=== PATIENT | male | born 1990 | race Caucasian/White ===

== ENCOUNTER 2016-12-31 06:49 | Emergency (ER) | payer SELFPAY ==
[~2016-12-31] VITALS: Ht 182.9 cm; Wt 65.0 kg
[2016-12-31 06:51] VITALS: BP 149/75; PULSE 68; RESP 16; TEMP 98.4; O2SAT 97
[2016-12-31] MEDS ORDERED: SODIUM CHLOR 0.9% 1000 ML INJ 1,000 ML IV SCH (07:42)
[2016-12-31 07:44] VITALS: O2SAT 98
[2016-12-31] MEDS ORDERED: SODIUM CHLOR 0.9% 1000 ML INJ 1,000 ML IV ONE (07:45)
[2016-12-31] MEDS ORDERED: SODIUM CHLORIDE 0.9% FLUSH 10 ML FLUSH IV FLUSH PRN (07:45)
[2016-12-31] MEDS ORDERED: ONDANSETRON HCL 4 MG/2 ML VIAL IVP ONE (07:45)
[2016-12-31 08:18] LABS: AUTOMATED NEUTROPHIL # 8.6 TH/MM3 (1.8-7.7); BASOPHIL % 0.4 % (0.0-2.0); EOSINOPHIL % 0.1 % (0.0-4.0); HEMATOCRIT 45.5 % (39.0-51.0); LYMPH % 10.1 % (9.0-44.0); MEAN CELL VOLUME 88.7 FL (80.0-100.0); MEAN CORPUSCULAR HEMOGLOBIN 32.5 PG (27.0-34.0); MONO % 6.8 % (0.0-8.0); NEUT % 82.6 % (16.0-70.0); PLATELET COUNT 247 TH/MM3 (150-450); RED BLOOD COUNT 5.13 MIL/MM3 (4.50-5.90); WHITE BLOOD COUNT 10.4 TH/MM3 (4.0-11.0)
[2016-12-31 08:19] LABS: MEAN CORPUSCULAR HGB CONC 36.6 % (32.0-36.0)
[2016-12-31 08:20] LABS: HEMO FLAGS AUTO DIFF
[2016-12-31 08:35] LABS: ANION GAP 10 MEQ/L (5-15); AST (GOT) 29 U/L (15-37); BICARBONATE 23.2 MEQ/L (21.0-32.0); BLOOD UREA NITROGEN 22 MG/DL (7-18); CHLORIDE 104 MEQ/L (98-107); GLOMERULAR FILTRATION RATE 86 ML/MIN (>89); POTASSIUM 3.4 MEQ/L (3.5-5.1); SODIUM (NA) 137 MEQ/L (136-145)
[2016-12-31 08:36] LABS: ALT (GPT) 37 U/L (12-78)
[2016-12-31 08:39] LABS: ALKALINE PHOSPHATASE 77 U/L (45-117); TOTAL BILIRUBIN ADULT 3.5 MG/DL (0.2-1.0)
--- NOTE | 2016-12-31 08:44 | PD ---
HPI Chief Complaint: GI Complaint Time Seen by Provider: 07:18 Travel History International Travel<30 days: No Contact w/Intl Traveler<30days: No Traveled to known affect area: No History of Present Illness HPI 26-year-old male came to the emergency room with history of vomiting that started 2 days ago. Patient says that he ate at [employer] and it started soon after. No history of diarrhea. Since then he has been unable to keep anything down. Currently he is just dry heaving. His last episode of vomiting/dry heaving was 2 and half hours ago when he tried to drink some asad nati. He went to work and was lightheaded and his boss asked him to come and be checked out. There is another coworker with similar symptoms but he did not eat at [employer]. No history of fever or chills. Patient did have a bowel movement but it was not diarrhea. No history of abdominal pain. He is otherwise a healthy person. He does have history of asthma but does not have any breathing difficulty at this point. Vital signs were stable. REPLACED BY [facility] Past Medical History Narrative Medical List of his past medical, surgical, social and family history is reviewed from the nursing note. Medical History: Denies Significant Hx Asthma: Yes Diminished Hearing: No Immunizations Current: Yes Influenza Vaccination: No Past Surgical History Surgical History: No Previous Surgery Social History Alcohol Use: No Tobacco Use: No Substance Use: No Allergies-Medications (Allergen,Severity, Reaction): Coded Allergies: No Known Allergies (Unverified , 12/31/16) Comments No known drug allergies. Reported Meds & Prescriptions Reported Meds & Active Scripts Active Zofran Odt (Ondansetron Odt) 4 Mg Tab 4 Mg SL Q6HR PRN Narrative Medication List of his home medications reviewed from the nursing note. Review of Systems Except as stated in HPI: all other systems reviewed are Neg Gastrointestinal: Positive: Nausea, Vomiting Physical Exam Narrative GENERAL: Awake, alert, moderate distress, anxious SKIN: Focused skin assessment warm/dry. HEAD: Atraumatic. Normocephalic. EYES: Pupils equal and round. No scleral icterus. No injection or drainage. ENT: No nasal bleeding or discharge. Dry mucous membrane. NECK: Trachea midline. No JVD. CARDIOVASCULAR: Regular rate and rhythm. No murmur appreciated. RESPIRATORY: No accessory muscle use. Clear to auscultation. Breath sounds equal bilaterally. GASTROINTESTINAL: Abdomen soft, non-tender, nondistended. Hepatic and splenic margins not palpable. MUSCULOSKELETAL: No obvious deformities. No clubbing. No cyanosis. No edema. NEUROLOGICAL: Awake and alert. No obvious cranial nerve deficits. Motor grossly within normal limits. Normal speech. PSYCHIATRIC: Appropriate mood and affect; insight and judgment normal. Data Data Last Documented VS Vital Signs Date Time Temp Pulse Resp B/P (MAP) Pulse Ox O2 Delivery O2 Flow Rate FiO2 12/31/16 10:15 12/31/16 07:44 98 Room Air 12/31/16 07:28 19 12/31/16 06:51 98.4 68 Orders Orders Complete Blood Count With Diff (12/31/16 07:42) Comprehensive Metabolic Panel (12/31/16 07:42) Lipase (12/31/16 07:42) Iv Access Insert/Monitor (12/31/16 07:42) Ecg Monitoring (12/31/16 07:42) Oximetry (12/31/16 07:42) Ondansetron Inj (Zofran Inj) (12/31/16 07:45) Sodium Chlor 0.9% 1000 Ml Inj (Ns 1000 M (12/31/16 07:42) Sodium Chloride 0.9% Flush (Ns Flush) (12/31/16 07:45) Sodium Chlor 0.9% 1000 Ml Inj (Ns 1000 M (12/31/16 07:45) Metoclopramide Inj (Reglan Inj) (12/31/16 09:00) Ed Discharge Order (12/31/16 09:18) Labs Laboratory Tests Test 12/31/16 07:45 White Blood Count 10.4 TH/MM3 Red Blood Count 5.13 MIL/MM3 Hemoglobin 16.7 GM/DL Hematocrit 45.5 % Mean Corpuscular Volume 88.7 FL Mean Corpuscular Hemoglobin 32.5 PG Mean Corpuscular Hemoglobin Concent 36.6 % Red Cell Distribution Width 13.0 % Platelet Count 247 TH/MM3 Mean Platelet Volume 7.9 FL Neutrophils (%) (Auto) 82.6 % Lymphocytes (%) (Auto) 10.1 % Monocytes (%) (Auto) 6.8 % Eosinophils (%) (Auto) 0.1 % Basophils (%) (Auto) 0.4 % Neutrophils # (Auto) 8.6 TH/MM3 Lymphocytes # (Auto) 1.0 TH/MM3 Monocytes # (Auto) 0.7 TH/MM3 Eosinophils # (Auto) 0.0 TH/MM3 Basophils # (Auto) 0.0 TH/MM3 CBC Comment AUTO DIFF Differential Comment AUTO DIFF CONFIRMED Blood Urea Nitrogen 22 MG/DL Creatinine 1.04 MG/DL Random Glucose 115 MG/DL Total Protein 8.4 GM/DL Albumin 4.8 GM/DL Calcium Level 9.8 MG/DL Alkaline Phosphatase 77 U/L Aspartate Amino Transf (AST/SGOT) 29 U/L Alanine Aminotransferase (ALT/SGPT) 37 U/L Total Bilirubin 3.5 MG/DL Sodium Level 137 MEQ/L Potassium Level 3.4 MEQ/L Chloride Level 104 MEQ/L Carbon Dioxide Level 23.2 MEQ/L Anion Gap 10 MEQ/L Estimat Glomerular Filtration Rate 86 ML/MIN Lipase 57 U/L MDM Medical Decision Making Medical Screen Exam Complete: Yes Emergency Medical Condition: Yes Medical Record Reviewed: Yes Differential Diagnosis Acute gastroenteritis, food poisoning, small bowel obstruction, acute appendicitis, acute pericarditis Narrative Course 8:42 AM blood test results are back. The BUN is mildly elevated and potassium is mildly low which goes with him vomiting and dehydration. Patient has been started on IV fluid bolus 2 and IV Zofran. I've asked him not to drink anything until he is received at least 1 L of IV fluid bolus. He will be given some fluid challenge at this point. Procedures EKG Prior to Arrival: No Diagnosis Primary Impression: Acute gastritis Qualified Codes: K29.00 - Acute gastritis without bleeding Additional Impression: Vomiting Qualified Codes: R11.2 - Nausea with vomiting, unspecified Referrals: Primary Care Physician Additional Instructions: Please return to the ER if the condition worsens or any other new concerns. Take the medication as per the prescription direction. Follow-up with your primary care in couple days. Med/Other Pt SpecificInfo: Prescription(s) given Scripts Ondansetron Odt (Zofran Odt) 4 Mg Tab 4 MG SL Q6HR Y for Nausea/Vomiting, #10 TAB 0 Refills Prov: Dominik Castillo MD 12/31/16 Disposition: 01 DISCHARGE HOME Condition: Stable Dominik Castillo MD Dec 31, 2016 08:44
[2016-12-31] MEDS ORDERED: METOCLOPRAMIDE HCL 10 MG/2 ML VIAL IV PUSH ONE (09:00)
[2016-12-31 09:02] LABS: SCAN/DIFF AUTO DIFF CONFIRMED
[2016-12-31] MEDS ORDERED: ZOFR4TAB3 SL (09:23)
== END 2016-12-31 10:15 | disposition home or self-care (01) ==
LOC: NEPC 06:49
DX: K29.00 Acute gastritis without bleeding (principal); J45.909 Unspecified asthma, uncomplicated
CPT/HCPCS: 80053; 83690; 85025; 96361; 96374; 96375; 99284; J2405; J2765; J7030

== ENCOUNTER 2017-03-25 09:04 | Emergency (ER) | payer SELFPAY ==
[~2017-03-25] VITALS: Ht 180.3 cm; Wt 65.0 kg
[~2017-03-25 09:04] MED LIST: ZOFR4TAB3 SL
[2017-03-25 09:05] VITALS: BP 132/85; PULSE 81; RESP 16; TEMP 97.9; O2SAT 97
[2017-03-25] MEDS ORDERED: SODIUM CHLOR 0.9% 1000 ML INJ 1,000 ML IV SCH (09:19)
--- NOTE | 2017-03-25 09:26 | PD ---
HPI Chief Complaint: Abdominal Pain Time Seen by Provider: 09:14 Travel History International Travel<30 days: No Contact w/Intl Traveler<30days: No Traveled to known affect area: No History of Present Illness HPI 26-year-old male presents to the emergency department complaint of epigastric abdominal pain since Wednesday. Reports vomiting and diarrhea. Diarrhea subsides to see. Vomiting is continued through early this morning and last vomited at approximately 2 AM. Has been drinking Gatorade this morning without continued vomiting. Low-grade fever 99.0 on Wednesday. Denies dysuria. Denies hematochezia, hematuria, hematemesis. No known relieving or aggravating factors. Has not taken any medication or drainage was to alleviate his symptoms. Pain 10/29. Describes it as a pressure. Denies sick contacts. Denies alcohol, illicit drug, tobacco use. No established primary care provider. No known allergies. Denies significant past medical history. Denies history of abdominal surgeries. Has no other medical complaints. No other modifying factors or associated signs and symptoms. PFSH Past Medical History Asthma: Yes Diminished Hearing: No Immunizations Current: Yes Past Surgical History Surgical History: No Previous Surgery Social History Alcohol Use: No Tobacco Use: No Substance Use: No Allergies-Medications (Allergen,Severity, Reaction): Coded Allergies: No Known Allergies (Unverified Adverse Reaction, Unknown, 03/25/17) Reported Meds & Prescriptions Reported Meds & Active Scripts Active Zofran Odt (Ondansetron Odt) 4 Mg Tab 4 Mg SL Q8HR PRN Review of Systems Except as stated in HPI: all other systems reviewed are Neg Physical Exam Narrative GENERAL: Well-nourished, well-developed male patient, in no acute distress; afebrile SKIN: Warm and dry. HEAD: Atraumatic. Normocephalic. EYES: Pupils equal and round. No scleral icterus. No injection or drainage. ENT: Mucosa pink and moist. Airway patent. NECK: Trachea midline. CARDIOVASCULAR: Regular rate and rhythm. No murmur appreciated. RESPIRATORY: No accessory muscle use. Clear to auscultation. Breath sounds equal bilaterally. GASTROINTESTINAL: Abdomen soft, tenderness on palpation to right upper quadrant , nondistended. Hepatic and splenic margins not palpable. Positive Ledesma's sign Bowel sounds are active 4 quadrants. Nonrigid. No rebound tenderness. No guarding. BACK: No CVA tenderness. MUSCULOSKELETAL: No obvious deformities. No clubbing. No cyanosis. No edema. NEUROLOGICAL: Awake and alert. Oriented 3. No obvious cranial nerve deficits. Motor grossly within normal limits. Normal speech. PSYCHIATRIC: Appropriate mood and affect; insight and judgment normal. Data Data Last Documented VS Vital Signs Date Time Temp Pulse Resp B/P (MAP) Pulse Ox O2 Delivery O2 Flow Rate FiO2 03/25/17 09:28 99 Room Air 03/25/17 09:05 97.9 81 16 Orders Orders Complete Blood Count With Diff (03/25/17 09:19) Comprehensive Metabolic Panel (03/25/17 09:19) Lipase (03/25/17 09:19) Urinalysis - C+S If Indicated (03/25/17 09:19) Us Abdomen Gallbladder (03/25/17 ) Iv Access Insert/Monitor (03/25/17 09:19) Ecg Monitoring (03/25/17 09:19) Oximetry (03/25/17 09:19) Ondansetron Inj (Zofran Inj) (03/25/17 09:30) Sodium Chlor 0.9% 1000 Ml Inj (Ns 1000 M (03/25/17 09:19) Sodium Chloride 0.9% Flush (Ns Flush) (03/25/17 09:30) Ketorolac Inj (Toradol Inj) (03/25/17 09:30) Ed Discharge Order (03/25/17 11:14) Labs Laboratory Tests Test 03/25/17 09:30 03/25/17 10:45 White Blood Count 7.6 TH/MM3 Red Blood Count 5.38 MIL/MM3 Hemoglobin 17.2 GM/DL Hematocrit 47.6 % Mean Corpuscular Volume 88.5 FL Mean Corpuscular Hemoglobin 32.0 PG Mean Corpuscular Hemoglobin Concent 36.1 % Red Cell Distribution Width 12.8 % Platelet Count 232 TH/MM3 Mean Platelet Volume 7.4 FL Neutrophils (%) (Auto) 77.5 % Lymphocytes (%) (Auto) 13.2 % Monocytes (%) (Auto) 8.4 % Eosinophils (%) (Auto) 0.4 % Basophils (%) (Auto) 0.5 % Neutrophils # (Auto) 5.9 TH/MM3 Lymphocytes # (Auto) 1.0 TH/MM3 Monocytes # (Auto) 0.6 TH/MM3 Eosinophils # (Auto) 0.0 TH/MM3 Basophils # (Auto) 0.0 TH/MM3 CBC Comment AUTO DIFF Differential Comment AUTO DIFF CONFIRMED Blood Urea Nitrogen 20 MG/DL Creatinine 0.81 MG/DL Random Glucose 115 MG/DL Total Protein 8.7 GM/DL Albumin 4.6 GM/DL Calcium Level 9.3 MG/DL Alkaline Phosphatase 94 U/L Aspartate Amino Transf (AST/SGOT) 28 U/L Alanine Aminotransferase (ALT/SGPT) 33 U/L Total Bilirubin 1.4 MG/DL Sodium Level 140 MEQ/L Potassium Level 3.4 MEQ/L Chloride Level 104 MEQ/L Carbon Dioxide Level 27.3 MEQ/L Anion Gap 9 MEQ/L Estimat Glomerular Filtration Rate 115 ML/MIN Lipase 61 U/L Urine Color YELLOW Urine Turbidity CLOUDY Urine pH 8.0 Urine Specific [place] 1.030 Urine Protein 30 mg/dL Urine Glucose (UA) NEG mg/dL Urine Ketones 10 mg/dL Urine Occult Blood NEG Urine Nitrite NEG Urine Bilirubin NEG Urine Urobilinogen LESS THAN 2.0 MG/DL Urine Leukocyte Esterase NEG Urine RBC 1 /hpf Urine Amorphous Sediment MOD Urine Mucus FEW /lpf Microscopic Urinalysis Comment CULT NOT INDICATED MDM Medical Decision Making Medical Screen Exam Complete: Yes Emergency Medical Condition: Yes Medical Record Reviewed: Yes Differential Diagnosis Gastroenteritis, gastritis, cholecystitis, cholelithiasis Narrative Course 26-year-old male with right upper quadrant abdominal pain and vomiting. IV, normal saline bolus, CBC, CMP, lipase, urinalysis, ultrasound of right upper quadrant, Toradol, Zofran ordered. 1005: Right upper quadrant ultrasound with no acute findings. CBC unremarkable. 1042: Potassium 3.4, otherwise CMP unremarkable. Lipase 61. 1115: Urinalysis without signs of infection. Suspecting gastroenteritis. Zofran prescribed for home. Instructed patient to follow up with primary care provider. Patient verbalizes understanding and agreement with treatment plan. Patient is medically cleared and stable for discharge. Discussed reasons to return to the emergency department. Patient agrees with treatment plan. The patients vital signs are stable and the patient is stable for outpatient follow- up and treatment. Patient discharged home, stable and in no acute distress. Diagnosis Primary Impression: Gastroenteritis Referrals: Primary Care Physician Patient Instructions: Gastroenteritis (ED), General Instructions Departure Forms: Tests/Procedures, Work Release Enter return to work date: Mar 27, 2017 Additional Instructions: Take Zofran as prescribed for nausea/vomiting Increase fluid intake, starting with clear fluids; advancing to a bland diet as tolerated [place] diet to include crackers, rice, toast, bananas as tolerated, advancing slowly to regular diet Follow-up primary care provider in next 1-2 days Return to emergency department immediately, particularly if develop bloody or black stool, can't keep fluids down, develops disorientation or confusion Med/Other Pt SpecificInfo: Prescription(s) given Scripts Ondansetron Odt (Zofran Odt) 4 Mg Tab 4 MG SL Q8HR Y for Nausea/Vomiting, #6 TAB 0 Refills Prov: Latha Harley 03/25/17 Disposition: 01 DISCHARGE HOME Condition: Stable Latha Harley Mar 25, 2017 09:26
[2017-03-25 09:28] VITALS: O2SAT 99
[2017-03-25] MEDS ORDERED: SODIUM CHLORIDE 0.9% FLUSH 10 ML FLUSH IV FLUSH PRN (09:30)
[2017-03-25] MEDS ORDERED: KETOROLAC TROMETHAMINE 30 MG/ML (IVP) VIAL IVP ONE (09:30)
[2017-03-25] MEDS ORDERED: ONDANSETRON HCL 4 MG/2 ML VIAL IVP ONE (09:30)
[2017-03-25 09:47] LABS: AUTOMATED NEUTROPHIL # 5.9 TH/MM3 (1.8-7.7); BASOPHIL % 0.5 % (0.0-2.0); EOSINOPHIL % 0.4 % (0.0-4.0); HEMATOCRIT 47.6 % (39.0-51.0); HEMOGLOBIN 17.2 GM/DL (13.0-17.0); LYMPH % 13.2 % (9.0-44.0); MEAN CELL VOLUME 88.5 FL (80.0-100.0); MEAN PLATELET VOLUME 7.4 FL (7.0-11.0); MONO % 8.4 % (0.0-8.0); MONOCYTE # 0.6 TH/MM3 (0-0.9); NEUT % 77.5 % (16.0-70.0); PLATELET COUNT 232 TH/MM3 (150-450); RED BLOOD COUNT 5.38 MIL/MM3 (4.50-5.90); RED CELL DISTRIBUTION WIDTH 12.8 % (11.6-17.2); WHITE BLOOD COUNT 7.6 TH/MM3 (4.0-11.0)
[2017-03-25 09:50] LABS: MEAN CORPUSCULAR HGB CONC 36.1 % (32.0-36.0)
--- NOTE | 2017-03-25 09:54 | RADRPT ---
EXAM DATE/TIME: 03/25/2017 09:38 [place] COMPARISON: No previous studies available for comparison. INDICATIONS : Right upper quadrant pain. MEDICAL HISTORY : Right upper quadrant pain. Asthma. SURGICAL HISTORY : None. ENCOUNTER: Initial ACUITY: 3 days PAIN SCORE: 6/10 LOCATION: Right upper quadrant MEASUREMENTS: LIVER: 19.6 cm length COMMON DUCT: 3 mm RIGHT KIDNEY: 11.9 x 5.5 x 4.2 cm FINDINGS: The gallbladder is intact without any evidence for gallstones, gallbladder wall thickening, or perich olecystic fluid. The visualized liver, head of the pancreas, and right kidney appear grossly intact for technique. CONCLUSION: Unremarkable study. Mark Dubon MD on March 25, 2017 at 9:51 Board Certified Radiologist. This report was verified electronically.
[2017-03-25] MEDS ORDERED: ZOFR4TAB3 SL (10:06)
[2017-03-25 10:28] LABS: ALBUMIN 4.6 GM/DL (3.4-5.0); ALT (GPT) 33 U/L (12-78); AST (GOT) 28 U/L (15-37); BICARBONATE 27.3 MEQ/L (21.0-32.0); BLOOD UREA NITROGEN 20 MG/DL (7-18); CALCIUM 9.3 MG/DL (8.5-10.1); CHLORIDE 104 MEQ/L (98-107); CREATININE 0.81 MG/DL (0.60-1.30); GLOMERULAR FILTRATION RATE 115 ML/MIN (>89); GLUCOSE,RANDOM 115 MG/DL (74-106); LIPASE 61 U/L (73-393); SODIUM (NA) 140 MEQ/L (136-145)
[2017-03-25 10:30] LABS: ALKALINE PHOSPHATASE 94 U/L (45-117); TOTAL BILIRUBIN ADULT 1.4 MG/DL (0.2-1.0); TOTAL PROTEIN 8.7 GM/DL (6.4-8.2)
[2017-03-25 11:11] LABS: AMORPHOUS SEDIMENT, URINE MOD; BILIRUBIN, URINE NEG (NEG); BLOOD, URINE NEG (NEG); GLUCOSE,URINE NEG (NEG); KETONE, URINE 10 mg/dL (NEG); MUCUS URINE FEW /lpf (OCC); NITRITE,URINE NEG (NEG); URINE COLOR YELLOW (YELLW/STRAW); URINE LEUKOCYTE ESTERASE NEG (NEG)
== END 2017-03-25 11:48 | disposition home or self-care (01) ==
LOC: NEPD 09:04
DX: K52.9 Noninfective gastroenteritis and colitis, unspecified (principal); J45.909 Unspecified asthma, uncomplicated
CPT/HCPCS: 76705; 80053; 81001; 83690; 85025; 96361; 96374; 96375; 99285; J1885; J2405; J7030